=== PATIENT | male | born 1950 | race Caucasian/White ===

== ENCOUNTER 2017-10-05 08:01 | Inpatient (IN) ==
[2017-10-05] MEDS ORDERED: ALBUTEROL/IPRATROPIUM 2.5mg-0.5mg/3ml NEB IH ONE (08:16)
[2017-10-05] MEDS ORDERED: SALINE FLUSH 10ml SYRINGE IVF PRN (08:16)
--- NOTE | 2017-10-05 08:27 | Emergency Department Report ---
Asthma HPI - General Stated Complaint: diff breathing Time Seen by Provider: 10/05/17 08:05 Source: patient, family, RN notes reviewed, old records reviewed Mode of arrival: ambulatory Limitations: no limitations - History of Present Illness HPI Narrative: 67yo man presents to the ER for dyspnea. Pt has been seen in the ER every 2-4 weeks for the past few months. Appx 3 weeks ago, he was in this ER for dyspnea; on EKG (to [facility] for anticipated recurrence of his a-fib), pt was noted to have ST elevations. Pt was transferred to [place] for a heart cath; no significant disease noted (per pt). Pt has been short of breath for the past few days, but has not been able to figure out why. He knows that his kidneys are not working well. He is being evaluated for pulmonary nodules - no cancer, but still awaiting culx. Pt has a h /o paroxysmal a-fib; was changed to xarelto for this during last hospitalization. No known CAD - last cath was 3 weeks ago. Pt believes that he is dying. MD complaint: shortness of breath Onset (ago): day(s) Severity: severe Associated symptoms: other (Weakness) - Related Data Current Asthma Therapy: none Home Medications Medication Instructions Recorded Confirmed Aspirin [Adult Aspirin] 81 mg PO DAILY 08/26/17 10/05/17 Atorvastatin Calcium [Atorvastatin 40 mg PO DAILY 08/26/17 10/05/17 Calcium] Bisoprolol Fumarate [Bisoprolol 10 mg PO DAILY 08/26/17 10/05/17 Fumarate] Cholecalciferol (Vitamin D3) 2,000 unit PO DAILY 08/26/17 10/05/17 [Vitamin D3] Cyanocobalamin (Vitamin B-12) 2,000 mcg PO DAILY 08/26/17 10/05/17 [Vitamin B-12] Fexofenadine [Lis] 180 mg PO DAILY 08/26/17 10/05/17 Fluticasone Nasal [place] [Flonase] 1 spray EA NOSTRIL DAILY PRN 08/26/17 10/05/17 Folic Acid [Folic Acid] 800 mcg PO DAILY 08/26/17 10/05/17 Nitroglycerin [Nitrostat] 0.4 mg SL Q5MIN3 PRN 08/26/17 10/05/17 Tamsulosin [Flomax] 0.4 mg PO DAILY 08/26/17 10/05/17 Venlafaxine HCl [Venlafaxine HCl 37.5 mg PO DAILY 08/26/17 10/05/17 ER] Rivaroxaban [Xarelto] 20 mg PO WS 10/05/17 10/05/17 Allergies Allergy/AdvReac Type Severity Reaction Status Date / Time No Known Allergies Allergy Verified 10/05/17 08:28 Review of Systems All systems: reviewed and negative except as stated Constitutional: Reports: as per HPI, weakness. Denies: fever, chills, weight change, night sweats Cardiovascular: Reports: as per HPI, dyspnea on exertion. Denies: chest pain, palpitations, orthopnea, edema, syncope, paroxysmal nocturnal dyspnea Respiratory: Reports: as per HPI, dyspnea. Denies: cough, wheezes, hemoptysis, stridor PFSH Patient Stated Medical History Cataracts Yes: HAD SURGERY Cardiac Arrhythmia Yes: afib Hx Renal Disease Yes Other Yes: KIDNEY DISEASE FROM HTN Anemia Yes: [facility] Medical History (Last Updated 12/30/16 @ 11:32 by Dina White RN) Morbid obesity with BMI of 45.0-49.9, adult (Chronic Medical) Depression (Chronic Medical) Anemia (Chronic Medical) Kidney disease (Chronic Medical) Cataracts, bilateral (Chronic Medical) High cholesterol (Chronic Medical) HTN (hypertension) (Chronic Medical) A-fib (Chronic Medical) Surgical History: gall bladder-1984. Vasectomy-1985. LAD stent 1 Family History: Family History (Last Updated 12/30/16 @ 11:31 by Dina White RN) Mother COPD (chronic obstructive pulmonary disease) - Social History Smoking status: Former smoker Substance use type: does not use Alcohol intake frequency: does not drink Household members: spouse Current occupational status: retired Physical Exam - Limitations Limitations: no limitations - General General appearance: alert, in no apparent distress, obese (Morbid) - Head Head exam: atraumatic, normocephalic, normal inspection - Eye Eye exam: Present: normal appearance, PERRL, EOMI. Absent: scleral icterus - ENT ENT exam: Present: normal exam, normal oropharynx, mucous membranes moist, normal external ear exam - Neck Neck exam: Present: normal inspection, full ROM, trachea midline. Absent: tenderness, lymphadenopathy - Chest Chest inspection: Present: normal inspection, symmetric chest wall rise. Absent : tenderness, rash - Respiratory Respiratory exam: Present: normal lung sounds bilaterally, crackles (B/l bases R >>L). Absent: respiratory distress, wheezes, stridor, prolonged expiratory phase - Cardiovascular Cardiovascular exam: Present: regular rate, normal rhythm, diastolic murmur. Absent: rubs, gallop, clicks - Abdominal Exam Abdominal exam: Present: soft, normal bowel sounds. Absent: distention, tenderness, guarding, rebound, rigidity - Extremities Exam Extremities exam: Present: normal inspection, full ROM, normal capillary refill. Absent: tenderness, pedal edema - Skin Skin exam: Present: warm, dry, intact, pallor (Globally). Absent: rash - Neurological Exam Neurological exam: Present: alert, oriented X3, normal gait, reflexes normal - Psychiatric Psychiatric exam: Present: agitated, anxious Course - Consultations Consultation #1: Hospitalist: Will admit to CCU for further eval/treatment. Time: 09:44 Dyspnea - MDM Narrative Medical decision making narrative: Pt with numerous abnormal findings in the ER (new-onset anemia, Acute on chronic RF, worsening CXR, etc). Discussed with hospitalist, who has agreed to admit locally for further eval/treatment. - Differential Diagnosis Differential diagnosis: Likely: Status asthmaticus, PE, Pneumonia, COPD exacerbation, Pulmonary edema systolic, Pulmonary edema dystolic, Foreign body in trachea - Medical Records Attestation: I reviewed the patient's medical records. - Lab Data Attestation: I reviewed the patient's lab results. Result diagrams: 10/05/17 08:18 10/05/17 08:18 - Radiology Data Attestation: I reviewed the patient's radiology results. CXR: FINDINGS: Worsening appearance of the chest with dense multifocal consolidation in the right lung and patchy airspace disease in the left upper and lower lobes. Small pleural effusions. No pneumothorax. Cardiac silhouette remains enlarged. Mediastinal contours are stable. Pulmonary vascularity is obscured. Impression: Worsening severe predominantly right-sided airspace disease with a broad differential diagnosis as given on the prior CT. Recommend clinical and laboratory correlation. - EKG Data EKG #1 EKG attestation: Yes: I reviewed and interpreted this EKG. EKG shows normal: sinus rhythm, axis, intervals, QRS complexes Rate [ED.COU.EKR]: normal Interpretation: nonspecific ST-T wave changes Disposition Clinical Impression: Kidney disease, Morbid obesity with BMI of 45.0-49.9, adult Anemia Qualifiers: Anemia type: other cause Other causes of anemia: other cause, not classified Qualified Code(s): D64.89 - Other specified anemias Disposition: 02 To [facility] Acute Care Print Language: [place] Condition: Stable Prescriptions: No Action Cholecalciferol (Vitamin D3) [Vitamin D3] 2,000 unit PO DAILY Folic Acid [Folic Acid] 800 mcg PO DAILY Cyanocobalamin (Vitamin B-12) [Vitamin B-12] 2,000 mcg PO DAILY Bisoprolol Fumarate [Bisoprolol Fumarate] 10 mg PO DAILY Nitroglycerin [Nitrostat] 0.4 mg SL Q5MIN3 PRN PRN Reason: Chest Pain Atorvastatin Calcium [Atorvastatin Calcium] 40 mg PO DAILY Fluticasone Nasal [place] [Flonase] 1 spray EA NOSTRIL DAILY PRN PRN Reason: Prn Orders Venlafaxine HCl [Venlafaxine HCl ER] 37.5 mg PO DAILY Tamsulosin [Flomax] 0.4 mg PO DAILY Fexofenadine [Lis] 180 mg PO DAILY Rivaroxaban [Xarelto] 20 mg PO WS Aspirin [Adult Aspirin] 81 mg PO DAILY Referrals: Lenny Denny MD [Primary Care Provider] - Time of Disposition: 10:00 - Seen By: physician
--- NOTE | 2017-10-05 09:26 | XRay Report ---
INDICATION: Dyspnea PROCEDURE: CHEST 2-VIEWS UPRIGHT (PA & LAT) Encounter: Initial COMPARISON: August 30, [address] FINDINGS: Worsening appearance of the chest with dense multifocal consolidation in the right lung and patchy airspace disease in the left upper and lower lobes. Small pleural effusions. No pneumothorax. Cardiac silhouette remains enlarged. Mediastinal contours are stable. Pulmonary vascularity is obscured. Impression: Worsening severe predominantly right-sided airspace disease with a broad differential diagnosis as given on the prior CT. Recommend clinical and laboratory correlation. .
[2017-10-05 10:41] VITALS: BMI 41.1
[2017-10-05] MEDS ORDERED: FLUTICASONE NASAL SPRAY 50mcg EA NOSTRIL PRN (12:47)
--- NOTE | 2017-10-05 14:33 | Pulmonology Consult Note ---
History of Present Illness Consult date: 10/05/17 Requesting physician: Daisy Bro Reason for consult: dyspnea Chief complaint: short of breath History of present illness: Clemente is a 67 year old patient with history of an abnormal lung CT. He had a large nodule in the left lung base and we recently sent him for percutaneous needle biopsy showing benign chronic inflammatory changes that were non- specific. The patient has been experiencing increased shortness of breath, states that he can't walk across the room without dyspnea. His CXR is showing extensive new airspace changes in the right lung compared to the previous CT chest. The patient was seen in the office with the following history: This patient has an abnormal CT scan demonstrating: Multiple bilateral nodular densities, all airway-centric with a few containing air-bronchograms. The largest nodule is in the posterior left lung base. Findings are concerning for inflammatory or infectious nodules more than malignancy. There is risk that the abnormalities may represent a malignant or progressive process. Based on the patient's signs and symptoms, exam findings and radiographic findings, we will recommend a CT guided needle biopsy from the left lung base for diagnostic purposes. We will recommend sending specimens for cytology, AFB stain and cultures, Gram stain and culture, fungus stain and cultures. CT guided biopsy will be performed as an outpatient and carries some inherent risk. Clemente has had a recent cough productive of clear phlegm. On one occasion he had a small amount of hemoptysis as well. Patient had a CXR ordered which appeared abnormal, therefore doctor ordered a CT chest. The CT chest was abnormal. The CT chest showed: multiple bilateral nodular densities, all airway-centric with a few containing air-bronchograms. The largest nodule is in the posterior left lung base. Findings are concerning for inflammatory or infectious nodules more than malignancy. The patient is fairly asymptomatic except for mild cough and some dyspnea on exertion. The patient was sent today to discuss the findings and ensure followup He did have a negative TB skin test recently Review of Systems All systems: reviewed and no additional remarkable complaints except as stated PFSH Patient Stated Medical History Cataracts Yes: HAD SURGERY Cardiac Arrhythmia Yes: afib Other Respiratory Yes: nodule on lungs Hx Renal Disease Yes Other Yes: KIDNEY DISEASE FROM HTN [facility] (Last Updated 12/30/16 @ 11:32 by Dina White RN) Morbid obesity with BMI of 45.0-49.9, adult (Chronic Medical) Depression (Chronic Medical) Anemia (Chronic Medical) Kidney disease (Chronic Medical) Cataracts, bilateral (Chronic Medical) High cholesterol (Chronic Medical) HTN (hypertension) (Chronic Medical) A-fib (Chronic Medical) Surgical History: gall bladder-1984. Vasectomy-1985. LAD stent 1 Family History: Family History (Last Updated 12/30/16 @ 11:31 by Dina White RN) Mother COPD (chronic obstructive pulmonary disease) - Social History Smoking status: Former smoker Substance use type: does not use Alcohol intake frequency: does not drink Household members: spouse Current occupational status: retired Medications Home Medications Medication Instructions Recorded Confirmed Type Aspirin [Adult Aspirin] 81 mg PO DAILY 08/26/17 10/05/17 History Atorvastatin Calcium [Atorvastatin 40 mg PO DAILY 08/26/17 10/05/17 History Calcium] Bisoprolol Fumarate [Bisoprolol 10 mg PO DAILY 08/26/17 10/05/17 History Fumarate] Cholecalciferol (Vitamin D3) 2,000 unit PO DAILY 08/26/17 10/05/17 History [Vitamin D3] Cyanocobalamin (Vitamin B-12) 2,000 mcg PO DAILY 08/26/17 10/05/17 History [Vitamin B-12] Fexofenadine [Lis] 180 mg PO DAILY 08/26/17 10/05/17 History Fluticasone Nasal [place] [Flonase] 1 spray EA NOSTRIL DAILY PRN 08/26/17 History Folic Acid [Folic Acid] 800 mcg PO DAILY 08/26/17 10/05/17 History Nitroglycerin [Nitrostat] 0.4 mg SL Q5MIN3 PRN 08/26/17 10/05/17 History Tamsulosin [Flomax] 0.4 mg PO DAILY 08/26/17 10/05/17 History Venlafaxine HCl [Venlafaxine HCl 37.5 mg PO DAILY 08/26/17 10/05/17 History ER] Rivaroxaban [Xarelto] 20 mg PO WS 10/05/17 10/05/17 History Allergies Allergy/AdvReac Type Severity Reaction Status Date / Time No Known Allergies Allergy Verified 10/05/17 08:28 Exam Vital signs: Temperature 99.0 F 10/05/17 12:00 Pulse Rate 75 10/05/17 12:00 Respiratory Rate 32 H 10/05/17 12:00 Blood Pressure 127/90 H 10/05/17 12:00 Pulse Oximetry 94 10/05/17 12:00 - Constitutional no acute distress, obese - Routine HEENT Exam Head: Present: normocephalic, atraumatic Eye: Present: EOMI, PERRL. Absent: conjunctival icterus ENT: Present: mucous membranes moist - Routine Neck Exam Present: supple - Routine Respiratory Exam Present: rhonchi, crackles. Absent: accessory muscle use - Routine Cardiovascular Exam Present: RRR - Routine Abdominal Exam Present: soft. Absent: guarding - Routine Extremities Exam Present: edema. Absent: cyanosis, clubbing - Routine Skin Exam Absent: intact, rash - Routine Neurological Exam Present: alert, oriented X3. Absent: motor deficit - Routine Psychiatric Exam Present: normal affect, normal thought process Results - Laboratory Findings CBC and BMP: 10/05/17 08:18 10/05/17 08:18 PT/INR, D-dimer D-Dimer 391 NG/ML (0-230) H 10/05/17 08:18 - Diagnostic Findings Chest x-ray: report reviewed, image reviewed CT scan - chest: report reviewed, image reviewed Assessment and Plan (1) Acute respiratory failure with hypoxia Status: Acute Assessment and plan: Associated with scattered pulmonary nodules and worsening infiltrates. Given his worsening renal function and recent biopsy showing inflammatory changes, I do wonder about the possibility of pulmonary-renal syndrome such as ANCA or anti GBM vasculitis. His sister did have Crohn's disease and cryptogenic cirrhosis so there is a familial propensity for autoimmune disease check: MARIPOSA, ESR, RF, ANCA, Anti-GBM start empiric steroids, antibiotics would be appropriate at this time Recommend nephrology consult as well. check urinalysis with micro eval for red cell casts Current Visit: Yes (2) Acute on chronic kidney failure Status: Acute Current Visit: Yes - Time Spent With Patient Total time spent is greater than 50% in coordination of care (as documented) at patient's floor/unit and/or counseling patient: 25 - 35 minutes
--- NOTE | 2017-10-05 14:54 | History & Physical Report ---
History of Present Illness Date: 10/05/17 Chief complaint: dyspnea HPI: Mr. Haley is a 67-year-old male who is had progressively increasing dyspnea for the past month. Dyspnea has worsened significantly in the past 2-3 days and dramatically in the past 24 hours. He describes exertional dyspnea occurring if he walks 5-10 steps and requiring him to rest for several minutes to catch his breath. At rest he has no difficulty breathing and he denies dyspnea laying flat or at night. He denies orthopnea or PND. He's had no weight gain or increasing edema. He has actually lost weight over the past month due to decreased appetite. He denies fevers, chills, sweats. He's had a cough with " red sputum". Sputum was previously clear but has been red and thick since he was anticoagulated approximate 6 weeks ago for atrial fibrillation. He denies actually coughing up blood clots but indicates that sputum is not simply blood- tinged either. He denies pleuritic pain. He is currently undergoing evaluation for pulmonary nodules and had a percutaneous needle biopsy approximately a couple weeks ago at [facility] with negative pathology, negative bacterial cultures, and negative AFB/fungal cultures at one week. He additionally had a cardiac catheterization on 09/21/17 at [facility] at which time no obstructive disease or stent stenosis was demonstrated. Creatinine prior to cardiac catheterization was 2.7 and post catheter the following day was 2.7. He had repeat lab work on 10/02 at the request of Dr. Sousa at which time creatinine had risen to 3.8. Patient reports urine output has been lower than normal but he has decreased intake of fluids in part due to decreased appetite and to minimize activity. Chest x-ray in the emergency room demonstrated right greater than left infiltrates and the patient is admitted at this time for further evaluation. He presented to the emergency room today complaining of severe dyspnea and required 4 L supplemental oxygen to maintain saturation above 90-91%. BNP and d-dimer were minimally but not significantly elevated. Review of Systems All systems PM: 10-point ROS was reviewed, no additional remarkable complaints except (chronic sinus congestion/drainage for years, palpitations with activity- versus heartbeat in his ears, urinary dribbling recently for one day with subsequent resolution, dry heaves 2 days ago, decreased appetite recently, known heart murmur. Remainder of review of systems as per history of present illness or negative.) Past Medical History Medical History: Medical History (Last Updated 10/05/17 @ 15:00 by Daisy Bro MD) Morbid obesity with BMI of 45.0-49.9, adult (Chronic) Depression (Chronic) Anemia (Chronic) Pernicious anemia Cataracts, bilateral (Chronic) High cholesterol (Chronic) HTN (hypertension) (Chronic) A-fib (Chronic) Paroxysmal Aortic stenosis 30 mm gradient by echocardiogram 09/07/17 BPH (benign prostatic hyperplasia) CAD (coronary artery disease) CKD (chronic kidney disease), stage III DDD (degenerative disc disease) With spinal stenosis involving the lumbar region DJD (degenerative joint disease) Primarily affecting knees Obstructive sleep apnea Surgical History: gall bladder-1984. Vasectomy-1985. LAD stent 1 Family History: Family History (Last Updated 10/05/17 @ 14:42 by Daisy Bro MD) Mother COPD (chronic obstructive pulmonary disease) Aortic valve disease CHF (congestive heart failure) Father Alzheimers disease Maternal Grandfather CAD (coronary artery disease) Sister Crohns disease Cirrhosis Family History: As Above - Social History Smoking status: Former smoker (one half pack per day for 12-13 years; discontinued in 1980) Substance use type: does not use Alcohol intake frequency: holidays/special occasions only Current occupational status: retired ([employer]) Social history: PCP-Dr. Lenny Denny Cardiology-Dr. Liu Greer Pulmonary-Dr. Darrell Chou Nephrology-Dr. Golden Sousa DPOA- CODE STATUS-full Medications Home Medications Medication Instructions Recorded Confirmed Type Aspirin [Adult Aspirin] 81 mg PO DAILY 08/26/17 10/05/17 History Atorvastatin Calcium [Atorvastatin 40 mg PO DAILY 08/26/17 10/05/17 History Calcium] Bisoprolol Fumarate [Bisoprolol 10 mg PO DAILY 08/26/17 10/05/17 History Fumarate] Cholecalciferol (Vitamin D3) 2,000 unit PO DAILY 08/26/17 10/05/17 History [Vitamin D3] Cyanocobalamin (Vitamin B-12) 2,000 mcg PO DAILY 08/26/17 10/05/17 History [Vitamin B-12] Fexofenadine [Lis] 180 mg PO DAILY 08/26/17 10/05/17 History Fluticasone Nasal [place] [Flonase] 1 spray EA NOSTRIL DAILY PRN 08/26/17 History Folic Acid [Folic Acid] 800 mcg PO DAILY 08/26/17 10/05/17 History Nitroglycerin [Nitrostat] 0.4 mg SL Q5MIN3 PRN 08/26/17 10/05/17 History Tamsulosin [Flomax] 0.4 mg PO DAILY 08/26/17 10/05/17 History Venlafaxine HCl [Venlafaxine HCl 37.5 mg PO DAILY 08/26/17 10/05/17 History ER] Rivaroxaban [Xarelto] 20 mg PO WS 10/05/17 10/05/17 History Allergies Allergy/AdvReac Type Severity Reaction Status Date / Time No Known Allergies Allergy Verified 10/05/17 08:28 Exam Vital Signs: Temperature 99.0 F 10/05/17 12:00 Pulse Rate 75 10/05/17 12:00 Respiratory Rate 32 H 10/05/17 12:00 Blood Pressure 127/90 H 10/05/17 12:00 Pulse Oximetry 94 - 4L 10/05/17 12:00 EXAM: General-NAD, resting comfortably with head of bed elevated 25-30, speaking in full sentences, fluent speech HEENT-PERRL, EOMI without nystagmus, conjugate gaze, conjunctiva clear, sclera anicteric, facial structures symmetric, oropharynx clear, neck supple and without adenopathy Lungs-respirations nonlabored at rest, good airflow, no wheezing, inspiratory/ expiratory crackles present 1/3rd up posterior lung field on the right and at the left base Cardiac-regular rhythm, S1-S2, 2/6 systolic ejection murmur best heard at the left upper sternal border but easily audible at the right upper sternal border Abd-soft, nontender, obese, bowel sounds present Ext-trace edema bilateral lower extremities Skin-sallow complexion but not icteric, no wounds or rashes Neuro-cranial nerves 3-12 intact, motor tone/power within normal limits, sensation intact to light touch Psych-calm, cooperative Telemetry Rhythm: Sinus Rhythm Height/Weight/BMI: Height 1.93 m Weight 153.4 kg Body Mass Index 41.1 Results - Labs CBC & Chem 7: 10/05/17 08:18 10/05/17 08:18 Labs: Creatinine 1.7 on 08/26/17; 2.7 on 09/21 and 09/22/17, 3.8 on 10/02/17 Hemoglobin 9.5 on 09/22 In addition to above labs obtained earlier today: D-dimer 391, proBNP 501, troponin <0.012, liver enzymes unremarkable. Lactic acid 1.3 B 12 <1000 Urinalysis trace protein, +3 occult blood, TNTC RBCs, 1-3 WBC - ECG Data Tracing #1 I reviewed this ECG and interpreted as documented below: (sinus rhythm with no acute changes, diffuse T-wave flattening) - Imaging and Cardiology Chest x-ray Status: image reviewed by me (right > left diffuse infiltrates; film reviewed with Dr. Chou) Assessment and Plan (1) Acute respiratory failure with hypoxia Current visit: Yes Status: Acute Assessment and Plan: Impression: Acute hypoxic respiratory failure Hemoptysis Pulmonary infiltrates, R > L Acute renal failure on CKD3 Acute blood loss anemia Pulmonary nodules-biopsy negative malignancy Microscopic hematuria Leukocytosis Paroxysmal atrial fibrillation CAD Aortic stenosis-echo 09/07/17 EF 73%, AV gradient 30 mm, nl diastolic function Obstructive sleep apnea Morbid obesity-BMI 41.2 Hypertension Plan: Patient is admitted to the intensive care unit with combination of acute hypoxic respiratory failure and progressive renal failure over the past 6 weeks. This is occurring conjunction with development of hemoptysis since he was anticoagulated for recurrent paroxysmal atrial fibrillation. Renal failure was deteriorating prior to cardiac catheterization and has continued to deteriorate at a point when recovery from ATN post-dye exposure would be anticipated. Case has been discussed with Dr. Chou and Dr. Sousa. Combined symptoms of hemoptysis, progressive pulmonary infiltrates with dyspnea, and progressive renal failure raises question of pulmonary renal syndrome and underlying autoimmune disorder. It is of note that the patient has sister who of cirrhosis of unknown etiology although she had Crohn's disease. Patient additionally describes chronic sinus symptoms. Serologies are being obtained to evaluate renal failure and hemoptysis including ANCAs, GBM antibody, MARIPOSA, and complements. Phosphorus will be obtained with next laboratory data. Medications will be dose adjusted for progressive renal failure and Xarelto will be discontinued. Anticipate patient will require renal biopsy which Dr. Sousa had previously planned and was in the process of coordinating. Due to rapid deterioration in renal function patient will be empirically treated with steroids. Up-to-date recommends methylprednisolone at 15-30 mg/kg to maximum dose for thousand milligrams IV daily for 3 days followed by oral prednisone at 1 mg/kg per day to maximum dose of 60-80 mg per day and taper after remission is induced. The 15 mg/kg dose of methylprednisolone being initiated. Patient will be typed and crossed in anticipation of potential need for transfusion; no chest pain at this time and recent catheterization demonstrated no significant coronary disease. Sputum culture to be obtained; no indication of systemic infection or concern of sepsis. Critically ill with worsening respiratory and renal function. Time in 1145, time out [address] Chou, Dr. Sousa, , , and nursing. DVT Prophylaxis: SCD's Resuscitation Status: Full Code - Physician Narrative Narrative: Date: 10/05/17 Time: 1443 Hospital Course Summary Disclaimer: The visit summary below is not to be considered part of the above Progress Note. Hospital Course: 10/05/17 Patient is admitted to the intensive care unit with combination of acute hypoxic respiratory failure and progressive renal failure over the past 6 weeks. This is occurring conjunction with development of hemoptysis since he was anticoagulated for recurrent paroxysmal atrial fibrillation. Renal failure was deteriorating prior to cardiac catheterization and has continued to deteriorate at a point when recovery from ATN post-dye exposure would be anticipated. Case has been discussed with Dr. Chou and Dr. Sousa. Combined symptoms of hemoptysis, progressive pulmonary infiltrates with dyspnea, and progressive renal failure raises question of pulmonary renal syndrome and underlying autoimmune disorder. It is of note that the patient has sister who of cirrhosis of unknown etiology although she had Crohn's disease. Patient additionally describes chronic sinus symptoms. Serologies are being obtained to evaluate renal failure and hemoptysis including ANCAs, GBM antibody, MARIPOSA, and complements. Phosphorus will be obtained with next laboratory data. Medications will be dose adjusted for progressive renal failure and Xarelto will be discontinued. Anticipate patient will require renal biopsy which Dr. Sousa had previously planned and was in the process of coordinating. Patient will be typed and crossed in anticipation of potential need for transfusion; no chest pain at this time and recent catheterization demonstrated no significant coronary disease. Sputum culture to be obtained; no indication of systemic infection or concern of sepsis.
[2017-10-05] MEDS ORDERED: ACETAMINOPHEN 325 MG TABLET PO PRN (15:31)
[2017-10-05] MEDS ORDERED: ONDANSETRON 4 MG/2 ML INJECTION IVP PRN (15:31)
[2017-10-05] MEDS: METHYLPREDNISOLONE SOD SUCC IV SCH (17:56)
--- NOTE | 2017-10-06 09:25 | Pulmonology Progress Note ---
Subjective Principal diagnosis: respiratory Failure Interval history: Pt in bed, states breathing is a little better and cough slightly better today. Exam Vital signs: Temperature 96.8 F 10/06/17 04:01 Pulse Rate 65 10/06/17 08:00 Respiratory Rate 30 H 10/06/17 06:00 Blood Pressure 158/74 H 10/06/17 06:00 Pulse Oximetry 97 10/06/17 06:00 Inpatient Medications: Generic Name Dose Route Start Last Admin Trade Name Emily PRN Reason Stop Dose Admin Acetaminophen 650 mg 10/05/17 15:31 10/05/17 17:55 Tylenol PO 650 mg QID PRN Administration Discomfort Aspirin 81 mg 10/06/17 09:00 Ecotrin PO DAILY [facility] Atorvastatin Calcium 40 mg 10/06/17 09:00 Lipitor PO DAILY [facility] Bisoprolol Fumarate 10 mg 10/06/17 09:00 Zebeta PO DAILY [facility] Cholecalciferol 2,000 unit 10/06/17 09:00 Vit. D-3 PO DAILY [facility] Fluticasone Propionate 1 spray 10/05/17 12:47 Flonase EA NOSTRIL DAILY PRN PRN orders Folic Acid 1 mg 10/06/17 09:00 Folate PO DAILY [facility] Methylprednisolone Sodium 250 mls @ 250 mls/hr 10/05/17 16:00 10/05/17 18:56 Succinate 1,000 mg/ Sodium IV 10/07/17 10:59 Infused Chloride DAILY@1000 [facility] Infusion Insulin Aspart 1 - 5 unit 10/05/17 15:42 Novolog SQ SS PRN Hyperglycemia Protocol Ondansetron HCl 4 mg 10/05/17 15:31 10/05/17 15:35 Zofran IVP 4 mg Q6H PRN Administration Nausea &/or vomiting Sodium Chloride 10 - 80 ml 10/05/17 08:16 Iv Flush IVF PRN PRN Flushing Tamsulosin HCl 0.4 mg 10/06/17 09:00 Flomax PO DAILY [facility] Venlafaxine HCl 37.5 mg 10/06/17 09:00 Effexor Xr PO DAILY [facility] Discontinued Medications Generic Name Dose Route Start Last Admin Trade Name Emily PRN Reason Stop Dose Admin Albuterol/Ipratropium 3 ml 10/05/17 08:16 10/05/17 08:32 Duoneb IH 10/05/17 08:17 3 ml ONCE ONE Administration - Constitutional no acute distress, morbidly obese, cooperative - Routine HEENT Exam Head: Present: normocephalic, atraumatic Eye: Present: EOMI, PERRL - Routine Neck Exam Present: supple, full ROM, trachea midline - Routine Respiratory Exam Present: decreased breath sounds. Absent: accessory muscle use, patient mechanically ventilated - Routine Cardiovascular Exam Present: RRR, S1, S2, murmur - Routine Abdominal Exam Present: soft, normoactive bowel sounds - Routine Extremities Exam Present: edema, non tender, full ROM. Absent: cyanosis, clubbing Comments: trace edema - Routine Back/Spine/Pelvis Exam Back/Spine: Present: full ROM - Routine Skin Exam Present: intact, dry - Routine Neurological Exam Present: alert, oriented X3, CN II-XII intact - Routine Psychiatric Exam Present: normal affect, normal thought process Results - Laboratory Findings Laboratory: Laboratory Results - last 48 hr 10/05/17 10/05/17 10/06/17 13:12 20:20 04:32 WBC 12.6 H RBC 2.47 L Hgb 7.7 L Hct 23.3 L MCV 94.3 MCH 31.2 MCHC 33.0 RDW Std Deviation 43.3 Plt Count 204 MPV 12.3 Immature Gran % (Auto) 0.2 Neut % (Auto) 85.8 H Lymph % (Auto) 13.5 L [place] % (Auto) 0.5 Eos % (Auto) 0.0 Baso % (Auto) 0.0 Neut # (Auto) 10.8 H Lymph # (Auto) 1.7 [place] # (Auto) 0.1 Eos # (Auto) 0.0 Baso # (Auto) 0.0 Abs Immat Gran (auto) 0.03 Glucometer 168 Complement C3 192 H Complement C4 40 10/06/17 05:53 WBC RBC Hgb Hct MCV MCH MCHC RDW Std Deviation Plt Count MPV Immature Gran % (Auto) Neut % (Auto) Lymph % (Auto) [place] % (Auto) Eos % (Auto) Baso % (Auto) Neut # (Auto) Lymph # (Auto) [place] # (Auto) Eos # (Auto) Baso # (Auto) Abs Immat Gran (auto) Glucometer 187 Complement C3 Complement C4 Assessment and Plan (1) Acute respiratory failure with hypoxia Status: Acute Current Visit: Yes (2) Acute on chronic kidney failure Status: Acute Current Visit: Yes (3) PIERO (obstructive sleep apnea) Status: Acute Current Visit: Yes - Assessment and Plan Plan: Pt currently on O2 at 4L per NC and tolerating at 90%. Used his home machine for PIERO (?bipap vs Cpap), was unable to tolerate, will use hospital machine for better pressures and keep sats up. Continues on steroids, WBC 12, afebrile. Per Effie note: Given his worsening renal function and recent biopsy showing inflammatory changes, I do wonder about the possibility of pulmonary-renal syndrome such as ANCA or anti GBM vasculitis. His sister did have Crohn's disease and cryptogenic cirrhosis so there is a familial propensity for autoimmune disease, check: MARIPOSA, ESR, RF, ANCA, Anti-GBM, urinalysis with micro eval for red cell casts, all still pending. recommend a nephrology consult. - Time Spent With Patient Total time spent is greater than 50% in coordination of care (as documented) at patient's floor/unit and/or counseling patient: less than 15 minutes
[2017-10-06] MEDS: Venlafaxine XR 37.5 MG CAPSULE (24hr) PO SCH (09:26)
[2017-10-06] MEDS: TAMSULOSIN 0.4 MG CAPSULE PO SCH (09:26)
[2017-10-06] MEDS: FOLIC ACID 1 MG TABLET PO SCH (09:26)
[2017-10-06] MEDS: ATORVASTATIN 40 MG TABLET PO SCH (09:26)
[2017-10-06] MEDS: ASPIRIN *EC* 81 MG TABLET PO SCH (09:26)
[2017-10-06] MEDS: METHYLPREDNISOLONE SOD SUCC IV SCH (09:27)
[2017-10-06] MEDS: INSULIN ASPART 100unit/ml INJECTION SQ PRN ×3 (11:19→20:38)
--- NOTE | 2017-10-06 18:32 | Progress Note ---
- Date 10/06/17 Subjective: Mr. Haley was seen earlier this afternoon with family at bedside. He denies dyspnea at rest and has been in bed all day other than sitting at bedside. He reports occasional cough with minimal sputum today which was read on one occasion only. Denies chest pain, palpitations, or nausea. He is voiding well with fairly typical urine output; he denies hematuria. He was slightly lightheaded when he sat up changing positions earlier today. He reports sleeping well and that his appetite is good. Nursing reports that he required 8 L supplemental oxygen with CPAP overnight and has increased to 5 L supplemental oxygen with rest. Objective Vital signs: Temperature 98.4 F 10/06/17 11:56 Pulse Rate 74 10/06/17 17:00 Respiratory Rate 34 H 10/06/17 15:00 Blood Pressure 170/78 H 10/06/17 17:00 Pulse Oximetry 90 - 5L 10/06/17 17:00 I/O 810/1600 NAD, alert, speaking in sentences EOMI, conjunctiva clear, oropharynx clear Respirations nonlabored with good airflow, breath sounds are clear except at the right base with her faint crackles present; no wheezing Regular rhythm, S1-S2, 1-2/6 systolic ejection murmur upper sternal borders Abdomen soft, nontender, obese, bowel sounds present Trace bilateral lower extremity edema Skin without rash MAEW Calm, cooperative, oriented 3 Height/Weight/BMI: Height 1.93 m Weight 157.8 kg Body Mass Index 41.1 Results - Labs CBC & Chem 7: 10/06/17 04:32 10/06/17 09:03 Labs: Accu-Cheks [phone] over past 24 hours Phosphorus 5.4 Magnesium 2.1 yesterday C3-192, C4-40 Microbiology Results: Microbiology 10/06/17 07:50 Sputum, Expectorated Gram Stain - Final 10/05/17 17:10 Sputum, Expectorated Gram Stain - Final 10/05/17 17:10 Sputum, Expectorated Sputum Culture - Final Assessment and Plan (1) Acute respiratory failure with hypoxia Current visit: Yes Status: Acute Assessment and Plan: Impression: Acute hypoxic respiratory failure Hemoptysis Pulmonary infiltrates, R > L Acute renal failure on CKD3 Acute blood loss anemia Pulmonary nodules-biopsy negative malignancy Microscopic hematuria Leukocytosis Paroxysmal atrial fibrillation CAD Aortic stenosis-echo 09/07/17 EF 73%, AV gradient 30 mm, nl diastolic function Obstructive sleep apnea Morbid obesity-BMI 41.2 Hypertension Steroid-induced hyperglycemia Plan: Increasing oxygen demand with modest increase in creatinine over the past 24 hours although no acute indication for dialysis and urine output is good. Discussed changes in the past [address] Sousa and he was comfortable with patient remaining hospitalized here as opposed transferring to [place]. Multiple serologies pending; will eventually need biopsy of lung or kidney if serologies positive or renal biopsy if serologies nonrevealing. Continue supportive care, continue high-dose steroids. Phosphorus binder initiated. Requiring insulin for steroid-induced hyperglycemia. Pulmonary plans to use hospital CPAP/BiPAP unit tonight-will likely require increased pressures for improved oxygenation. Repeat chest x-ray in a.m. Sputum culture with few neutrophils and moderate epithelial cells, mixed bacterial letty-no clear indication for antibiotics at present. Hemoglobin minimally changed, continue to monitor in the event transfusion becomes necessary. Given known coronary disease will transfuse if drops much further. Case discussed with nursing and Dr. Sousa. Remains critically ill, 40 minutes in patient care today. DVT Prophylaxis: SCD's - Physician Narrative Narrative: Date: 10/06/17 Time: 1828 Hospital Course Summary Disclaimer: The visit summary below is not to be considered part of the above Progress Note. Hospital Course: 10/05/17 Patient is admitted to the intensive care unit with combination of acute hypoxic respiratory failure and progressive renal failure over the past 6 weeks. This is occurring conjunction with development of hemoptysis since he was anticoagulated for recurrent paroxysmal atrial fibrillation. Renal failure was deteriorating prior to cardiac catheterization and has continued to deteriorate at a point when recovery from ATN post-dye exposure would be anticipated. Case has been discussed with Dr. Chou and Dr. Sousa. Combined symptoms of hemoptysis, progressive pulmonary infiltrates with dyspnea, and progressive renal failure raises question of pulmonary renal syndrome and underlying autoimmune disorder. It is of note that the patient has sister who of cirrhosis of unknown etiology although she had Crohn's disease. Patient additionally describes chronic sinus symptoms. Serologies are being obtained to evaluate renal failure and hemoptysis including ANCAs, GBM antibody, MARIPOSA, and complements. Phosphorus will be obtained with next laboratory data. Medications will be dose adjusted for progressive renal failure and Xarelto will be discontinued. Anticipate patient will require renal biopsy which Dr. Sousa had previously planned and was in the process of coordinating. Patient will be typed and crossed in anticipation of potential need for transfusion; no chest pain at this time and recent catheterization demonstrated no significant coronary disease. Sputum culture to be obtained; no indication of systemic infection or concern of sepsis. 10/06/17 Increasing oxygen demand with modest increase in creatinine over the past 24 hours although no acute indication for dialysis and urine output is good. Discussed changes in the past [address] Sousa. Continue supportive care, continue high-dose steroids. Phosphorus binder initiated. Requiring insulin for steroid-induced hyperglycemia. Pulmonary plans to use hospital CPAP/BiPAP unit tonight-will likely require increased pressures for improved oxygenation. Repeat chest x-ray in a.m. Sputum culture with few neutrophils and moderate epithelial cells, mixed bacterial letty-no clear indication for antibiotics at present. Hemoglobin minimally change, continue to monitor in the event transfusion becomes necessary. Given known coronary disease will transfuse if drops much further.
[2017-10-07] MEDS: INSULIN ASPART 100unit/ml INJECTION SQ PRN ×3 (05:40→20:36)
[2017-10-07] MEDS: Venlafaxine XR 37.5 MG CAPSULE (24hr) PO SCH (09:20)
[2017-10-07] MEDS: ATORVASTATIN 40 MG TABLET PO SCH (09:20)
[2017-10-07] MEDS: FOLIC ACID 1 MG TABLET PO SCH (09:20)
[2017-10-07] MEDS: TAMSULOSIN 0.4 MG CAPSULE PO SCH (09:20)
[2017-10-07] MEDS: CALCIUM ACETATE 667 MG CAPSULE PO SCH ×2 (09:21→19:49)
[2017-10-07] MEDS: ASPIRIN *EC* 81 MG TABLET PO SCH (09:21)
[2017-10-07] MEDS ORDERED: BISACODYL 10 MG SUPPOSITORY RECTALLY PRN (10:40)
[2017-10-07] MEDS ORDERED: FAMOTIDINE 40 MG/5 ML ORAL LIQUID PO SCH (10:45)
[2017-10-07] MEDS: POLYETHYL GLYCOL 3350 17gm PACKET PO SCH (11:20)
[2017-10-07] MEDS: FAMOTIDINE 20 MG TABLET PO SCH (11:21)
[2017-10-07] MEDS: PANTOPRAZOLE 40 MG TABLET PO SCH (11:21)
--- NOTE | 2017-10-07 11:28 | Pulmonology Progress Note ---
Subjective Principal diagnosis: respiratory Failure Interval history: on 8-10 lpm O2. Used CPAP 6 last night via full face mask. (does not like it). on 1 gram methylpred daily from presumptive pulm/renal vasculitis. ESR >140. ANCA pending Exam Vital signs: Temperature 97.2 F 10/07/17 10:30 Pulse Rate 79 10/07/17 10:45 Respiratory Rate 26 H 10/07/17 10:45 Blood Pressure 119/62 10/07/17 10:14 Pulse Oximetry 96 10/07/17 10:45 Inpatient Medications: Generic Name Dose Route Start Last Admin Trade Name Freq PRN Reason Stop Dose Admin Acetaminophen 650 mg 10/05/17 15:31 10/05/17 17:55 Tylenol PO 650 mg QID PRN Administration Discomfort Aspirin 81 mg 10/06/17 09:00 10/07/17 09:21 Ecotrin PO 81 mg DAILY VAHID Administration Atorvastatin Calcium 40 mg 10/06/17 09:00 10/07/17 09:20 Lipitor PO 40 mg DAILY VAHID Administration Bisacodyl 10 mg 10/07/17 10:40 Dulcolax RECTALLY DAILY PRN Constipation Bisoprolol Fumarate 10 mg 10/06/17 09:00 10/07/17 11:21 Zebeta PO 10 mg DAILY VAHID Administration Calcium Acetate 1,334 mg 10/07/17 08:00 10/07/17 09:21 Phoslo PO 1,334 mg BIDWM VAHID Administration Cholecalciferol 2,000 unit 10/06/17 09:00 10/07/17 09:20 Vit. D-3 PO 2,000 unit DAILY VAHID Administration Famotidine 20 mg 10/07/17 11:00 10/07/17 11:21 Pepcid PO 20 mg DAILY VAHID Administration Fexofenadine HCl 180 mg 10/08/17 09:00 Lis PO DAILY VAHID Fluticasone Propionate 1 spray 10/05/17 12:47 Flonase EA NOSTRIL DAILY PRN PRN orders Folic Acid 1 mg 10/06/17 09:00 10/07/17 09:20 Folate PO 1 mg DAILY VAHID Administration Insulin Aspart 1 - 5 unit 10/05/17 15:42 10/07/17 11:21 Novolog SQ 2 unit SS PRN Administration Hyperglycemia Protocol Ondansetron HCl 4 mg 10/05/17 15:31 10/05/17 15:35 Zofran IVP 4 mg Q6H PRN Administration Nausea &/or vomiting Pantoprazole Sodium 40 mg 10/07/17 10:41 10/07/17 11:21 Protonix Tab PO 40 mg ACB VAHID Administration Polyethylene Glycol 17 gm 10/07/17 10:45 10/07/17 11:20 Miralax PO 17 gm DAILY VAHID Administration Senna/Docusate Sodium 2 tab 10/07/17 21:00 Senna Plus Tablet PO BID VAHID Sodium Chloride 10 - 80 ml 10/05/17 08:16 Iv Flush IVF PRN PRN Flushing Tamsulosin HCl 0.4 mg 10/06/17 09:00 10/07/17 09:20 Flomax PO 0.4 mg DAILY VAHID Administration Venlafaxine HCl 37.5 mg 10/06/17 09:00 10/07/17 09:20 Effexor Xr PO 37.5 mg DAILY VAHID Administration Discontinued Medications Generic Name Dose Route Start Last Admin Trade Name Freq PRN Reason Stop Dose Admin Albuterol/Ipratropium 3 ml 10/05/17 08:16 10/05/17 08:32 Duoneb IH 10/05/17 08:17 3 ml ONCE ONE Administration Famotidine 20 mg 10/07/17 10:45 Pepcid PO DAILY [facility] Methylprednisolone Sodium 250 mls @ 250 mls/hr 10/05/17 16:00 10/06/17 10:38 Succinate 1,000 mg/ Sodium IV 10/07/17 10:59 Infused Chloride DAILY@1000 VAHID Infusion - Constitutional no acute distress, obese - Routine HEENT Exam Head: Present: normocephalic Eye: Absent: conjunctival icterus - Routine Neck Exam Present: supple. Absent: JVD - Routine Respiratory Exam Present: decreased breath sounds - Routine Cardiovascular Exam Present: RRR - Routine Abdominal Exam Present: soft. Absent: guarding Results - Laboratory Findings Laboratory: Laboratory Results - last 48 hr 10/05/17 10/05/17 10/05/17 13:12 13:12 20:20 WBC RBC Hgb Hct MCV MCH MCHC RDW Std Deviation Plt Count MPV Immature Gran % (Auto) Neut % (Auto) Lymph % (Auto) [place] % (Auto) Eos % (Auto) Baso % (Auto) Neut # (Auto) Lymph # (Auto) [place] # (Auto) Eos # (Auto) Baso # (Auto) Abs Immat Gran (auto) Neutrophils % (Manual) Band Neutrophils % Lymphocytes % (Manual) Neutrophils # (Manual) Band Neutrophils # Lymphocytes # (Manual) Hypochromasia RBC Morph Comment Turbidity Sodium Potassium Chloride Carbon Dioxide Anion Gap BUN Creatinine GFR Calculation BUN/Creatinine Ratio Glucose Glucometer 168 Calculated Osmolality Calcium Phosphorus Magnesium Icterus Index Albumin Specimen Hemolysis Anti-Nuclear Antibody Negative Complement C3 192 H Complement C4 40 Blood Product Request 10/06/17 10/06/17 10/06/17 04:32 05:53 09:03 WBC 12.6 H RBC 2.47 L Hgb 7.7 L Hct 23.3 L MCV 94.3 MCH 31.2 MCHC 33.0 RDW Std Deviation 43.3 Plt Count 204 MPV 12.3 Immature Gran % (Auto) 0.2 Neut % (Auto) 85.8 H Lymph % (Auto) 13.5 L [place] % (Auto) 0.5 Eos % (Auto) 0.0 Baso % (Auto) 0.0 Neut # (Auto) 10.8 H Lymph # (Auto) 1.7 [place] # (Auto) 0.1 Eos # (Auto) 0.0 Baso # (Auto) 0.0 Abs Immat Gran (auto) 0.03 Neutrophils % (Manual) Band Neutrophils % Lymphocytes % (Manual) Neutrophils # (Manual) Band Neutrophils # Lymphocytes # (Manual) Hypochromasia RBC Morph Comment Turbidity < 20 Sodium 144 Potassium 4.5 Chloride 109 H Carbon Dioxide 22 Anion Gap 13 BUN 63.0 H* Creatinine 4.3 H D GFR Calculation 14 BUN/Creatinine Ratio 15 Glucose 163 H Glucometer 187 Calculated Osmolality 299 H Calcium 9.2 Phosphorus 5.4 H Magnesium Icterus Index < 2 Albumin 3.8 Specimen Hemolysis < 15 Anti-Nuclear Antibody Complement C3 Complement C4 Blood Product Request 10/06/17 10/06/17 10/06/17 11:15 14:43 20:34 WBC RBC Hgb Hct MCV MCH MCHC RDW Std Deviation Plt Count MPV Immature Gran % (Auto) Neut % (Auto) Lymph % (Auto) [place] % (Auto) Eos % (Auto) Baso % (Auto) Neut # (Auto) Lymph # (Auto) [place] # (Auto) Eos # (Auto) Baso # (Auto) Abs Immat Gran (auto) Neutrophils % (Manual) Band Neutrophils % Lymphocytes % (Manual) Neutrophils # (Manual) Band Neutrophils # Lymphocytes # (Manual) Hypochromasia RBC Morph Comment Turbidity Sodium Potassium Chloride Carbon Dioxide Anion Gap BUN Creatinine GFR Calculation BUN/Creatinine Ratio Glucose Glucometer 223 244 209 Calculated Osmolality Calcium Phosphorus Magnesium Icterus Index Albumin Specimen Hemolysis Anti-Nuclear Antibody Complement C3 Complement C4 Blood Product Request 10/07/17 10/07/17 10/07/17 04:19 04:19 05:36 WBC 24.4 H D RBC 2.33 L Hgb 7.2 L Hct 21.8 L MCV 93.6 MCH 30.9 MCHC 33.0 RDW Std Deviation 42.4 Plt Count 221 MPV 12.8 H Immature Gran % (Auto) Not performed Neut % (Auto) Not performed Lymph % (Auto) Not performed [place] % (Auto) Not performed Eos % (Auto) Not performed Baso % (Auto) Not performed Neut # (Auto) Not performed Lymph # (Auto) Not performed [place] # (Auto) Not performed Eos # (Auto) Not performed Baso # (Auto) Not performed Abs Immat Gran (auto) Not performed Neutrophils % (Manual) 90.0 H Band Neutrophils % 1.0 Lymphocytes % (Manual) 9.0 L Neutrophils # (Manual) 22.0 H Band Neutrophils # 0.2 Lymphocytes # (Manual) 2.2 Hypochromasia 2+ RBC Morph Comment Abnormal Turbidity < 20 Sodium 142 Potassium 4.6 Chloride 108 H Carbon Dioxide 19 L Anion Gap 15 BUN 85.0 H* Creatinine 4.4 H GFR Calculation 13 BUN/Creatinine Ratio 19 Glucose 172 H Glucometer 207 Calculated Osmolality 303 H Calcium 9.1 Phosphorus Magnesium 2.3 Icterus Index < 2 Albumin Specimen Hemolysis 26 H Anti-Nuclear Antibody Complement C3 Complement C4 Blood Product Request 10/07/17 10/07/17 10:24 10:52 WBC RBC Hgb Hct MCV MCH MCHC RDW Std Deviation Plt Count MPV Immature Gran % (Auto) Neut % (Auto) Lymph % (Auto) [place] % (Auto) Eos % (Auto) Baso % (Auto) Neut # (Auto) Lymph # (Auto) [place] # (Auto) Eos # (Auto) Baso # (Auto) Abs Immat Gran (auto) Neutrophils % (Manual) Band Neutrophils % Lymphocytes % (Manual) Neutrophils # (Manual) Band Neutrophils # Lymphocytes # (Manual) Hypochromasia RBC Morph Comment Turbidity Sodium Potassium Chloride Carbon Dioxide Anion Gap BUN Creatinine GFR Calculation BUN/Creatinine Ratio Glucose Glucometer 231 Calculated Osmolality Calcium Phosphorus Magnesium Icterus Index Albumin Specimen Hemolysis Anti-Nuclear Antibody Complement C3 Complement C4 Blood Product Request 1 unit pc issued - Diagnostic Findings Chest x-ray: report reviewed, image reviewed Assessment and Plan (1) Acute respiratory failure with hypoxia Status: Acute Assessment and plan: Associated with scattered pulmonary nodules and worsening infiltrates. Given his worsening renal function and recent biopsy showing inflammatory changes, I do wonder about the possibility of pulmonary-renal syndrome such as ANCA or anti GBM vasculitis. His sister did have Crohn's disease and cryptogenic cirrhosis so there is a familial propensity for autoimmune disease. The patient does not have wheeze or associated history of asthma to suggest Ch[place]- Thalia Vasculitis. Dottie's granulomatosis high in the differential. check: ANCA, Anti-GBM - still pending ESR/CRP are remarkably elevated Continue empiric steroids (Methylpred 250 q 6, antibiotics would be appropriate at this time Recommend nephrology consult as well. check urinalysis with micro eval for red cell casts Possible renal biopsy next week to confirm glomerulonephritis Current Visit: Yes (2) Acute on chronic kidney failure Status: Acute Current Visit: Yes - Time Spent With Patient Total time spent is greater than 50% in coordination of care (as documented) at patient's floor/unit and/or counseling patient: 25 - 35 minutes
[2017-10-07] MEDS: METHYLPREDNISOLONE SOD SUCC IV SCH (14:30)
[2017-10-07] MEDS ORDERED: CEFTRIAXONE 1 G in NS 100 ML IV SCH (19:15)
[2017-10-07] MEDS: SENNA + DOCUSATE TABLET PO SCH (20:27)
--- NOTE | 2017-10-07 20:39 | Progress Note ---
- Date 10/07/17 Subjective: Clemente reports increasing dizziness when he stands. He is not short of breath at rest but even taking 3 or 4 steps to the bedside commode causes him to be dyspneic. Cough is less frequent but sputum is still red colored. He denies chest pain, palpitations, or nausea. He is constipated however and reports he has sensation of being hungry/queasy at nigh. He denied dysuria or fever. On CPAP overnight at 6 cm with 60% FiO2; 8 L supplemental oxygen per nasal cannula today. Objective Vital signs: Temperature 97.7 F 10/07/17 13:00 Pulse Rate 70 10/07/17 16:00 Respiratory Rate 41 H 10/07/17 16:00 Blood Pressure 145/84 H 10/07/17 16:00 Pulse Oximetry 94 10/07/17 16:00 840/1725 Weight up 5 kg from admission NAD, alert, talking in full sentences Pupils equal and round, conjunctiva clear, sclera anicteric, oropharynx clear Respirations nonlabored, good airflow, breath sounds clear anteriorly and posteriorly Regular rhythm, S1-S2, systolic murmur upper sternal borders Abdomen soft, obese, nontender, bowel sounds present Trace edema bilateral lower extremities Skin without rashes Oriented 3 Rhythm: Normal Sinus Rhythm Height/Weight/BMI: Height 1.93 m Weight 158.7 kg Body Mass Index 41.1 Results - Labs CBC & Chem 7: 10/07/17 15:32 10/07/17 04:19 Labs: A.m. CBC: WBC 24.4, hemoglobin 7.2, platelet count 221K Accu-Cheks 170-231 today pANCA 851, cANCA 9, GBM AB <0.2, MARIPOSA neg Microbiology Results: Microbiology 10/06/17 07:50 Sputum, Expectorated Gram Stain - Final 10/05/17 17:10 Sputum, Expectorated Gram Stain - Final 10/05/17 17:10 Sputum, Expectorated Sputum Culture - Final - Imaging and Cardiology Chest x-ray Status: image reviewed by me (R>L infiltrates, unchanged from admission- discussed with Dr. Chou) Assessment and Plan (1) Acute respiratory failure with hypoxia Current visit: Yes Status: Acute (2) Acute on chronic kidney failure Current visit: Yes Status: Acute Assessment and Plan: Impression: Acute hypoxic respiratory failure Acute renal failure on CKD3 pANCA vasculitis Hemoptysis Pulmonary infiltrates, R > L Acute blood loss anemia Pulmonary nodules-biopsy negative malignancy Microscopic hematuria Leukocytosis Paroxysmal atrial fibrillation CAD Aortic stenosis-echo 09/07/17 EF 73%, AV gradient 30 mm, nl diastolic function Obstructive sleep apnea Morbid obesity-BMI 41.2 Hypertension Steroid-induced hyperglycemia Plan: Hemoglobin down slightly-transfused 1 unit PRBCs this morning. Oxygen demand up slightly, creatinine up slightly. 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 Continue methylprednisolone, Dr. Chou notified; will discuss with nephrology in the morning. Unclear the biopsy will be needed at this point but will likely need Cytoxan therapy to obtain remission. White count up significantly consistent with high-dose steroids being administered. PPI/H2 librado started for gastric protection with high-dose steroids. Bowel regimen initiated for constipation. Case discussed with nursing, , and Dr. Chou Remains critically ill, 35 minutes in patient care today. DVT Prophylaxis: SCD's GI Prophylaxis: Protonix Resuscitation Status: Full Code - Physician Narrative Narrative: Date: 10/07/17 Time: 2033 Hospital Course Summary Disclaimer: The visit summary below is not to be considered part of the above Progress Note. Hospital Course: 10/05/17 Patient is admitted to the intensive care unit with combination of acute hypoxic respiratory failure and progressive renal failure over the past 6 weeks. This is occurring conjunction with development of hemoptysis since he was anticoagulated for recurrent paroxysmal atrial fibrillation. Renal failure was deteriorating prior to cardiac catheterization and has continued to deteriorate at a point when recovery from ATN post-dye exposure would be anticipated. Case has been discussed with Dr. Chou and Dr. Sousa. Combined symptoms of hemoptysis, progressive pulmonary infiltrates with dyspnea, and progressive renal failure raises question of pulmonary renal syndrome and underlying autoimmune disorder. It is of note that the patient has sister who of cirrhosis of unknown etiology although she had Crohn's disease. Patient additionally describes chronic sinus symptoms. Serologies are being obtained to evaluate renal failure and hemoptysis including ANCAs, GBM antibody, MARIPOSA, and complements. Phosphorus will be obtained with next laboratory data. Medications will be dose adjusted for progressive renal failure and Xarelto will be discontinued. Anticipate patient will require renal biopsy which Dr. Sousa had previously planned and was in the process of coordinating. Patient will be typed and crossed in anticipation of potential need for transfusion; no chest pain at this time and recent catheterization demonstrated no significant coronary disease. Sputum culture to be obtained; no indication of systemic infection or concern of sepsis. 10/06/17 Increasing oxygen demand with modest increase in creatinine over the past 24 hours although no acute indication for dialysis and urine output is good. Discussed changes in the past [address] Sousa. Continue supportive care, continue high-dose steroids. Phosphorus binder initiated. Requiring insulin for steroid-induced hyperglycemia. Pulmonary plans to use hospital CPAP/BiPAP unit tonight-will likely require increased pressures for improved oxygenation. Repeat chest x-ray in a.m. Sputum culture with few neutrophils and moderate epithelial cells, mixed bacterial letty-no clear indication for antibiotics at present. Hemoglobin minimally change, continue to monitor in the event transfusion becomes necessary. Given known coronary disease will transfuse if drops much further. 10/07/17 Hemoglobin down slightly-transfused 1 unit PRBCs this morning. Oxygen demand up slightly, creatinine up slightly. 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 Continue methylprednisolone, Dr. Chou notified; will discuss with nephrology in the morning. Unclear the biopsy will be needed at this point but will likely need Cytoxan therapy to obtain remission. White count up significantly consistent with high-dose steroids being administered. PPI/H2 librado started for gastric protection with high-dose steroids. Bowel regimen initiated for constipation.
[2017-10-08] MEDS: PANTOPRAZOLE 40 MG TABLET PO SCH (05:57)
[2017-10-08] MEDS ORDERED: PredniSONE 20 MG TABLET PO SCH (08:00)
[2017-10-08] MEDS: CALCIUM ACETATE 667 MG CAPSULE PO SCH (09:27)
[2017-10-08] MEDS: TAMSULOSIN 0.4 MG CAPSULE PO SCH (09:28)
[2017-10-08] MEDS: SENNA + DOCUSATE TABLET PO SCH (09:28)
[2017-10-08] MEDS: ASPIRIN *EC* 81 MG TABLET PO SCH (09:29)
[2017-10-08] MEDS: ATORVASTATIN 40 MG TABLET PO SCH (09:29)
[2017-10-08] MEDS: FAMOTIDINE 20 MG TABLET PO SCH (09:29)
[2017-10-08] MEDS: FOLIC ACID 1 MG TABLET PO SCH (09:29)
[2017-10-08] MEDS: FEXOFENADINE 180 MG TABLET PO SCH ×2 (09:30→09:40)
[2017-10-08] MEDS: Venlafaxine XR 37.5 MG CAPSULE (24hr) PO SCH (09:30)
[2017-10-08] MEDS: POLYETHYL GLYCOL 3350 17gm PACKET PO SCH (09:30)
[2017-10-08] MEDS: INSULIN ASPART 100unit/ml INJECTION SQ PRN (10:03)
--- NOTE | 2017-10-08 10:32 | Discharge Summary ---
Discharge Information Date of admission: 10/05/17 09:57 Anticipated date of discharge: 10/08/17 Attending Physician: Daisy Bro MD Primary care physician: Lenny Denny MD Consults: Dr. Darrell Chou - Discharge Diagnosis (1) Acute respiratory failure with hypoxia Status: Acute (2) Acute on chronic kidney failure Status: Acute Acute hypoxic respiratory failure Acute renal failure on CKD3 pANCA vasculitis Hemoptysis Pulmonary infiltrates, R > L Acute blood loss anemia Pulmonary nodules-biopsy negative malignancy Microscopic hematuria Leukocytosis Paroxysmal atrial fibrillation CAD Aortic stenosis-echo 09/07/17 EF 73%, AV gradient 30 mm, nl diastolic function Obstructive sleep apnea Morbid obesity-BMI 41.2 Hypertension Steroid-induced hyperglycemia - Laboratory Labs: pANCA 851, cANCA 9, GBM AB <0.2, MARIPOSA neg, ESR >140, CRP 142.9, C3 192, C4 40 Cr 4.0-4.3-4.4-4.2 through course 10/08/17 04:18 10/08/17 04:18 - Microbiology Microbiology 10/06/17 07:50 Sputum, Expectorated Gram Stain - moderate epithelial cells, few neutrophils, many gram-positive cocci in pairs, moderate gram-positive cocci in chains, few gram-positive cocci in clusters, few gram-negative rods, gram-negative cocci, few gram-positive rods 10/06/17 07:50 Sputum, Expectorated Sputum Culture - Preliminary Early growth 10/05/17 17:10 Sputum, Expectorated Gram Stain -rejected 10/05/17 17:10 Sputum, Expectorated Sputum Culture - Final Blood cultures 2 drawn 10/05/17-negative at discharge - Radiology Radiology: Chest x-ray on 10/05/17: Worsening appearance of the chest with dense multifocal consolidation in the right lung and patchy airspace disease in the left upper and lower lobes. Small pleural effusions. No pneumothorax. Cardiac silhouette remains enlarged. Mediastinal contours are stable. Pulmonary vascularity is obscured. Impression: Worsening severe predominantly right-sided airspace disease with a broad differential diagnosis as given on the prior CT. Recommend clinical and laboratory correlation. Portable chest x-ray on 10/07/17: Unchanged from above History of Present Illness HPI: Mr. Haley is a 67-year-old male who is had progressively increasing dyspnea for the past month. Dyspnea has worsened significantly in the past 2-3 days and dramatically in the past 24 hours. He describes exertional dyspnea occurring if he walks 5-10 steps and requiring him to rest for several minutes to catch his breath. At rest he has no difficulty breathing and he denies dyspnea laying flat or at night. He denies orthopnea or PND. He's had no weight gain or increasing edema. He has actually lost weight over the past month due to decreased appetite. He denies fevers, chills, sweats. He's had a cough with " red sputum". Sputum was previously clear but has been red and thick since he was anticoagulated approximate 6 weeks ago for atrial fibrillation. He denies actually coughing up blood clots but indicates that sputum is not simply blood- tinged either. He denies pleuritic pain. He is currently undergoing evaluation for pulmonary nodules and had a percutaneous needle biopsy approximately a couple weeks ago at [facility] with negative pathology, negative bacterial cultures, and negative AFB/fungal cultures at one week. He additionally had a cardiac catheterization on 09/21/17 at [facility] at which time no obstructive disease or stent stenosis was demonstrated. Creatinine prior to cardiac catheterization was 2.7 and post catheter the following day was 2.7. He had repeat lab work on 10/02 at the request of Dr. Sousa at which time creatinine had risen to 3.8. Patient reports urine output has been lower than normal but he has decreased intake of fluids in part due to decreased appetite and to minimize activity. Chest x-ray in the emergency room demonstrated right greater than left infiltrates and the patient is admitted at this time for further evaluation. He presented to the emergency room today complaining of severe dyspnea and required 4 L supplemental oxygen to maintain saturation above 90-91%. BNP and d-dimer were minimally but not significantly elevated. Objective Vital signs: Temperature 97.4 F 10/08/17 03:00 Pulse Rate 71 10/08/17 06:01 Respiratory Rate 42 H 10/08/17 06:01 Blood Pressure 127/58 10/08/17 06:01 Pulse Oximetry 95 - 8 L high flow nasal cannula 10/08/17 06:01 NAD, alert, fluent speech Respirations nonlabored, good airflow, breath sounds clear anteriorly Regular rhythm, S1-S2, 2/6 systolic murmur upper sternal borders-heard more prominently today Abdomen soft, nontender, obese Extremities without edema Rhythm: Normal Sinus Rhythm Height/Weight/BMI: Height 1.93 m Weight 160 kg Body Mass Index 41.1 Hospital Course This is a general summary of the patient's hospital course. For more details refer to the complete medical record. Hospital course: 10/05/17 Patient is admitted to the intensive care unit with combination of acute hypoxic respiratory failure and progressive renal failure over the past 6 weeks. This is occurring conjunction with development of hemoptysis since he was anticoagulated for recurrent paroxysmal atrial fibrillation. Renal failure was deteriorating prior to cardiac catheterization and has continued to deteriorate at a point when recovery from ATN post-dye exposure would be anticipated. Case has been discussed with Dr. Chou and Dr. Sousa. Combined symptoms of hemoptysis, progressive pulmonary infiltrates with dyspnea, and progressive renal failure raises question of pulmonary renal syndrome and underlying autoimmune disorder. It is of note that the patient has sister who of cirrhosis of unknown etiology although she had Crohn's disease. Patient additionally describes chronic sinus symptoms. Serologies are being obtained to evaluate renal failure and hemoptysis including ANCAs, GBM antibody, MARIPOSA, and complements. Phosphorus will be obtained with next laboratory data. Medications will be dose adjusted for progressive renal failure and Xarelto will be discontinued. Anticipate patient will require renal biopsy which Dr. Sousa had previously planned and was in the process of coordinating. Patient will be typed and crossed in anticipation of potential need for transfusion; no chest pain at this time and recent catheterization demonstrated no significant coronary disease. Sputum culture to be obtained; no indication of systemic infection or concern of sepsis. 10/06/17 Increasing oxygen demand with modest increase in creatinine over the past 24 hours although no acute indication for dialysis and urine output is good. Discussed changes in the past [address] Sousa. Continue supportive care, continue high-dose steroids. Phosphorus binder initiated. Requiring insulin for steroid-induced hyperglycemia. Pulmonary plans to use hospital CPAP/BiPAP unit tonight-will likely require increased pressures for improved oxygenation. Repeat chest x-ray in a.m. Sputum culture with few neutrophils and moderate epithelial cells, mixed bacterial letty-no clear indication for antibiotics at present. Hemoglobin minimally change, continue to monitor in the event transfusion becomes necessary. Given known coronary disease will transfuse if drops much further. 10/07/17 Hemoglobin down slightly-transfused 1 unit PRBCs this morning. Oxygen demand up slightly, creatinine up slightly. 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 Continue methylprednisolone, Dr. Chou notified; will discuss with nephrology in the morning. Unclear the biopsy will be needed at this point but will likely need Cytoxan therapy to obtain remission. White count up significantly consistent with high-dose steroids being administered. PPI/H2 librado started for gastric protection with high-dose steroids. Ceftriaxone initiated in light of leukocytosis/sputum production/early growth in sputum sample. Dose given at 9 PM. Bowel regimen initiated for constipation. 10/08/17 Rested more comfortably overnight on BiPAP with FiO2 to 45% compared to 60% prior night. Continues to require 8 L with high flow nasal cannula while awake; describes decreased cough overall with minimal hemoptysis today. Complaints of weakness and no energy, dyspneic with minimal activity. Creatinine slightly improved today at 4.2 and patient feels like he's taking deeper breaths. Has completed 3 days of methylprednisolone 1 g daily, prednisone initiated at 80 mg daily this morning. Treatment initiated empirically on admission for possible vasculitis pending serologies. Blood sugars remain elevated as does white count with steroids. No indication of acute infection. Nursing reports brief episode of atrial fibrillation lasting 2-3 minutes during blood transfusion yesterday after which he should converted spontaneously back to sinus rhythm has remained sinus since. Prior night he had 6-7 beats of wide complex tachycardia (versus artifact) on the monitor but otherwise rhythm has been stable SR throughout. Results discussed with Dr. Hong who is on-call for Dr. Sousa and given creatinine above 4 and hemoptysis she recommended transfer to [facility] to permit option plasmapheresis. Discussed with patient and his son. Transfer coordinated with [facility] hospitalist. Time spent with patient: discharge greater than 30 minutes Resuscitation Status: Full Code Discharge Plan - Discharge Disposition Discharge Date: 10/08/17 Disposition: 02 To [facility] Acute Care *Condition: Stable Reason For Visit (Visit label in EMR): Anemia; ARF - Discharge Medications *Discharge Medications: New Famotidine [Pepcid] 20 mg PO DAILY tab Insulin Aspart [NovoLOG] 1 - 5 unit SQ SS PRN vial PRN Reason: Hyperglycemia Pantoprazole Tab [Protonix Tab] 40 mg PO ACB tab Ondansetron Inj [Zofran] 4 mg IVP Q6H PRN vial PRN Reason: Nausea &/Or Vomiting PEG 3350 17gm PACKET [Miralax] 17 gm PO DAILY packet PredniSONE [Deltasone 20 mg] 80 mg PO WB tab Senna + Docusate [Senna Plus Tablet] 2 tab PO BID tab Calcium Acetate [Phoslo] 1,334 mg PO BIDWM cap Continue Cholecalciferol (Vitamin D3) [Vitamin D3] 2,000 unit PO DAILY Folic Acid 800 mcg PO DAILY Cyanocobalamin (Vitamin B-12) [Vitamin B-12] 2,000 mcg PO DAILY Bisoprolol Fumarate 10 mg PO DAILY Nitroglycerin [Nitrostat] 0.4 mg SL Q5MIN3 PRN PRN Reason: Chest Pain Atorvastatin Calcium 40 mg PO DAILY Fluticasone Nasal [place] [Flonase] 1 spray EA NOSTRIL DAILY PRN PRN Reason: Prn Orders Venlafaxine HCl [Venlafaxine HCl ER] 37.5 mg PO DAILY Tamsulosin [Flomax] 0.4 mg PO DAILY Fexofenadine [Lis] 180 mg PO DAILY Aspirin [Adult Aspirin] 81 mg PO DAILY Discontinued Rivaroxaban [Xarelto] 20 mg PO WS - Discharge Packet/Instructions *Diet: cardiac, low phos *Activity: as tolerates *Pain Management/Treatment: tylenol as needed *Wound Care: NA *Expected Signs/Symptoms: cough, shortness of air *Notify Physician if: increasing difficulty breathing, swelling in arms/legs, coughing up blood, passing out, heart racing, chest pain *During Business Hours Contact: Dr. Denny, Dr. Sousa, or Dr. Greer *After Business Hours Contact: Call [facility] at [phone] and ask that the on-call physician be paged or Dr. Sousa's office and have on-call physician paged *Pending Lab/Results: Follow up w/Provider (final reports of blood cultures/ sputum culture are pending at discharge to [place]--I will notify M.DKobe there if any cultures are positive) - Referrals/Follow Up - Patient Handouts Patient Handouts: Dottie's Granulomatosis (GEN) - Dismissal Complete Discharge Instructions are:: Complete Physician Narrative - Narrative Attestation Narrative: Date: 10/08/17 Time: [id number]
--- NOTE | 2017-10-08 10:59 | XRay Report ---
Indication: acute hypoxic respiratory failure PROCEDURE: XR chest 1V: Encounter: Initial Comparison: October 05, 2017 Findings: Diffuse severe right-sided airspace consolidation is again noted without significant change. Patchy left upper lobe infiltrate is stable. No pneumothorax or significant pleural fluid. Heart size and mediastinal contours are stable. Impression: Stable severe right-sided airspace disease. .
[2017-10-08 11:09] VITALS: BP 149/67; PULSE 71; RESP 25; TEMP 97.8; O2SAT 85
== END 2017-10-08 11:05 | disposition short-term general hospital (02) | DRG 189 ==
LOC: ED 08:01 → EDHOLD 09:57 → CCU 10:30
PROVIDERS: ADMIT Internal Medicine; ATTEND Internal Medicine